=== PATIENT | female | born 1990 | race Caucasian/White ===

== ENCOUNTER 2023-04-16 12:46 | Outpatient (CLI) | payer BC, SELFPAY ==
--- NOTE | 2023-04-16 13:00 | CRLHL7_ITS ---
For Patients: As a result of the Century Cures Act, medical imaging exams and procedure reports are released immediately into your electronic medical record. You may view this report before your referring provider. If you have questions, please contact your health care provider. INDICATION: First trimester scan, establish dates. COMPARISON: None. TECHNIQUE: Real-time plummer-scale imaging of the pelvis was performed. FINDINGS: Cervix is closed. The ovaries are both normal. No ectopic or excess pelvic free fluid. Intrauterine gestational sac is present with a mean sac diameter of 11.1 millimeters, 5 weeks 5 days. No pole. No yolk sac. IMPRESSION: Intrauterine gestational sac measuring 5 weeks 5 days without pole. Follow-up in 11-14 days suggested. Dictated by Jim Pineda MD @ 04/16/2023 1:46:30 PM (Electronically Signed)
== END 2023-04-16 12:47 | disposition home or self-care (01) ==
LOC: US 12:47
PROVIDERS: PCP Family Medicine; Visit Provider Registered Nurse
DX: Z34.91 Encounter for supervision of normal pregnancy, unspecified, first trimester (principal)
CPT/HCPCS: 76817; 84702; 86850; 86900; 86901

== ENCOUNTER 2023-04-18 13:45 | Outpatient (CLI) | payer BC, SELFPAY | END 2023-04-18 13:46 | disposition home or self-care (01) | LOC: NFLDREF 04-19 08:23 | PROVIDERS: PCP Family Medicine; Referring Provider Family Medicine; Visit Provider Registered Nurse | DX: O26.859 Spotting complicating pregnancy, unspecified trimester (principal) | CPT/HCPCS: 84702 ==

== ENCOUNTER 2023-04-25 11:29 | Outpatient (CLI) | payer BC, SELFPAY | END 2023-04-25 11:30 | disposition home or self-care (01) | LOC: NFLDREF 05-01 09:45 | PROVIDERS: PCP Family Medicine; Referring Provider Family Medicine; Visit Provider Registered Nurse | DX: O03.9 Complete or unspecified spontaneous abortion without complication (principal) | CPT/HCPCS: 84702 ==

== ENCOUNTER 2023-05-02 11:30 | Outpatient (CLI) | payer BC, SELFPAY | END 2023-05-02 11:31 | disposition home or self-care (01) | LOC: NFLDREF 05-04 12:44 | PROVIDERS: PCP Family Medicine; Referring Provider Family Medicine; Visit Provider Registered Nurse | DX: O03.9 Complete or unspecified spontaneous abortion without complication (principal) | CPT/HCPCS: 84702 ==

== ENCOUNTER 2023-05-09 11:43 | Outpatient (CLI) | payer BC, SELFPAY | END 2023-05-09 11:44 | disposition home or self-care (01) | LOC: NFLDREF 11:43 | PROVIDERS: PCP Family Medicine; Visit Provider Registered Nurse | DX: O03.9 Complete or unspecified spontaneous abortion without complication (principal) | CPT/HCPCS: 84702 ==

== ENCOUNTER 2023-06-26 12:23 | Day surgery (SDC) | payer BC, SELFPAY ==
[2023-06-26] VITALS (16 sets, daily range): BP systolic 102–125; BP diastolic 59–78; PULSE 68–130; RESP 12–22; TEMP 36.4–37.4; O2SAT 97–100; BMI 24.6
--- NOTE | 2023-06-26 12:46 | CRLHL7_ITS ---
For Patients: As a result of the Cures Act, medical imaging exams and procedure reports are released immediately into your electronic medical record. You may view this report before your referring provider. If you have questions, please contact your health care provider. INDICATION: with bleeding and right lower quadrant pain TECHNIQUE: Ultrasound pelvis transvaginal for better assessment or to better visualize the endometrium. Real-time sonographic images with spectral and color Doppler imaging of the ovaries were obtained. COMPARISON: None FINDINGS: Uterus is anteverted with endometrium measuring 14 millimeters. No intrauterine gestational sac seen. Maternal left ovary measures 1.9 x 3.0 x 1.8 centimeters with normal blood flow and a likely corpus luteum. Maternal right ovary measures 2.8 x 1.3 x 3.0 centimeters. Adjacent to the right ovary is a rounded hypoechoic structure with peripheral hyperechogenicity measuring 11 millimeters. Trace adjacent free fluid, likely complex fluid such as hematoma. IMPRESSION: No intrauterine gestation identified. Hypoechoic lesion adjacent to the right ovary measuring 11 millimeters. With the history of a positive test and right-sided pain appearance is suspicious for a right adnexal ectopic . Correlation with quantitative beta HCG is suggested. Results given to the ER nurse by the industrial safety and health technician at the time of the study on 06/26/2023 Dictated by Albert Reza MD @ 06/26/2023 2:54:59 PM (Electronically Signed)
--- NOTE | 2023-06-26 12:49 | ED_ITS ---
HPI - Abdominal Pain General Chief Complaint: Abdominal Pain Stated Complaint: Suspected ectopic Time Seen by Provider: 06/26/23 12:25 History of Present Illness HPI narrative: This 33-year-old female comes in with right lower quadrant pain that began this morning. She states that the pain is now 9/10 in severity and is generally constant but does have some increased episodes of pain. The pain is worse with any kind of movement. She states that she is about 5 weeks and did have a miscarriage about 3 months ago. She is Rh negative. She does not report any significant vaginal bleeding but did have a little bit of blood when she wiped today she says. She rates the pain at 9/10 in severity currently. Related Data Home Medications Medication Instructions Recorded Confirmed No Known Home Medications 06/26/23 06/26/23 Allergies Allergy/AdvReac Type Severity Reaction Status Date / Time No Known Drug Allergies Allergy Verified 04/16/23 13:41 Review of Systems Status of ROS Reports: 10 or more systems reviewed and unremarkable except as noted in History and below Narrative Constitutional: No fevers, no weight gain or loss. Eyes: No discharge. No vision changes. HENT: No congestion, no sore throat, no ear pain. Cardiovascular: No chest pain, no palpitations. Respiratory: No shortness of breath, no wheezes, no cough. Gastrointestinal: No vomiting, no diarrhea. Right lower quadrant abdominal pain. Genitourinary: No dysuria, no hematuria. Musculoskeletal: Normal range of motion. Skin: No rashes, no pruritis. Neurological: No dizziness, weakness, sensory change, speech change. Endo/Heme/Allergies: No bruising or bleeding. No polydipsia. Pysch: no suicidality, no anxiety, no insomnia. All other systems reviewed and are negative. [facility] Medical History Vaginal delivery ?O80 - Encounter for full-term uncomplicated delivery (ICD-10) hemorrhage ?O72.1 - Other immediate hemorrhage (ICD-10) Surgical History [place] teeth extracted ?K08.409 - Partial loss of teeth, unspecified cause, unspecified class (ICD- 10) H/O nasal septoplasty ?Z98.890 - Other specified postprocedural states (ICD-10) Family History Mother Breast cancer COPD (chronic obstructive pulmonary disease) Skin cancer Paternal Grandmother Heart disease Stroke Maternal Grandmother Stroke Social History Smoking Status: Never smoker How often do you have a drink containing alcohol: never AUDIT-C Alcohol total score: 0 Non-prescribed substance use: denies use service: No Exam Narrative: Exam Narrative: Constitutional: Well-developed, well-nourished, no acute distress. HEENT: Normocephalic, atraumatic. Neck: Normal range of motion. Nontender. Supple. Heart: Regular. No murmurs. Normal rate. Intact distal pulses. Lungs: Clear to auscultation. No chest discomfort. No wheezes, rhonchi, or rales. Abdomen: Tenderness in the right lower quadrant. Rovsing sign is positive. Mild to moderate rebound tenderness. Genitalia: Deferred. Back: No midline tenderness. Normal range of motion. Extremities: Normal range of motion. No injury. Skin: Intact. No rash. Warm. No erythema or pallor. Neurologic: No altered sensation. No weakness. Alert and oriented. Psychiatric: No suicidality. No anxiety or depression. No insomnia. Nursing notes and vitals signs are reviewed. Const: Vital Signs, click to edit/add: Vital Signs - 24 hr 06/26/23 12:34 Temperature 97.5 F L Pulse Rate [Left P ulse Oximeter] 104 H Blood Pressure [Ri ght Upper Arm] 102/59 L Pulse Oximetry 100 Oxygen Delivery Me thod Room Air Course Vital Signs Vital signs: Initial Vital Signs Temperature 97.5 F L 06/26/23 12:34 Temperature Source Temporal Artery Scan 06/26/23 12:34 Pulse Rate 104 H 06/26/23 12:34 Pulse Rhythm Regular 06/26/23 12:34 Pulse Strength 3+ Normal 06/26/23 12:34 Blood Pressure 102/59 L 06/26/23 12:34 Blood Pressure Mean 73 06/26/23 12:34 Blood Pressure Position Sitting 06/26/23 12:34 Pulse Oximetry 100 06/26/23 12:34 Oxygen Delivery Method Room Air 06/26/23 12:34 Vital Signs Temperature 97.5 F L 06/26/23 12:34 Pulse Rate 104 H 06/26/23 12:34 Blood Pressure 102/59 L 06/26/23 12:34 Pulse Oximetry 100 06/26/23 12:34 Oxygen Delivery Method Room Air 06/26/23 12:34 Temperature 97.5 F L 06/26/23 12:34 Pulse Rate 104 H 06/26/23 12:34 Blood Pressure 102/59 L 06/26/23 12:34 Pulse Oximetry 100 06/26/23 12:34 Oxygen Delivery Method Room Air 06/26/23 12:34 MDM - Abdominal Pain MDM Narrative Medical decision making narrative: This patient comes in with right lower quadrant abdominal pain and some vaginal bleeding that is suspicious for ectopic . She states that she thinks she is 5 weeks . Her pain is rated at 9/10. She is Rh negative blood type. An IV was established where she received Dilaudid 0.5 mg and Zofran 4 mg. This brought sufficient relief of her pain. Ultrasound is obtained which does show findings highly suspicious for an ectopic . I did contact the OBGYN physician on-call, Dr. Treviño, who came to speak with the patient and arrange for emergent laparoscopy. A type and screen test is obtained. The patient did receive RhoGAM. Her beta-hCG returns at around 600 and her white count returns at 16.6. She is maintaining normal vital signs. Lab Data Labs: Lab Results 06/26/23 Range/Units 12:58 WBC 16.65 H (4.50-11.00) K/uL RBC 4.33 (4.00-5.20) m/uL Hgb 12.9 (12.0-16.0) gm/dL Hct 39.4 (33.0-51.0) % MCV 91 (80-100) fL MCH 30 (26-34) pg MCHC 33 (32-36) gm/dL RDW Coeff of [place]les 13.0 (11.5-15.5) % Plt Count 252 (140-440) K/uL Neut % (Auto) 82.5 H (42.0-72.0) % Lymph % (Auto) 10.9 L (20-44) % [place] % (Auto) 5.6 (0.0-11.0) % Eos % (Auto) 0.1 (0.0-7.0) % Baso % (Auto) 0.2 (0.0-3.0) % Neut # (Auto) 13.70 H (1.7-7.0) K/uL Lymph # (Auto) 1.80 (0.90-2.90) K/uL [place] # (Auto) 0.90 (0.00-0.90) K/UL Eos # (Auto) 0.00 (0.00-0.50) K/uL Baso # (Auto) 0.00 (0.00-0.30) K/uL Abs Immat Gran (auto) 0.10 (0.00-0.30) K/uL Imm/Tot Granulo (auto) 0.7 % Sodium 135 (135-149) mmol/L Potassium 3.9 (3.6-5.1) mmol/L Chloride 104 (96-114) mmol/L Carbon Dioxide 19 L (20-32) mmol/L Anion Gap 12 (7-15) mEq/L BUN 8 (5-24) mg/dL Creatinine 0.6 (0.5-1.5) mg/dL Estimated Creat Clear 105.48 Estimated GFR 121 ml/min Glucose 105 (60-115) mg/dL Calcium 8.7 (8.4-10.6) mg/dL HCG, Quant 601.06 mIU/mL Imaging Data US - abdomen: Radiologist's impression: No intrauterine gestation identified. Hypoechoic lesion adjacent to the right ovary measuring 11 millimeters. With the history of a positive test and right-sided pain appearance is suspicious for a right adnexal ectopic . Correlation with quantitative beta HCG is suggested. Discharge Plan Discharge Clinical Impression: Ectopic Patient Disposition: XFER to OR Condition: Unchanged Prescriptions: No Action No Known Home Medications Follow Up/Referrals: Jeff Bautista MD [Primary Care Provider] -
[2023-06-26] MEDS: HYDROmorphone 0.5 mg/0.5 ml inj IVP (13:00)
[2023-06-26] MEDS: ONDANSETRON 2 MG/ML inj 4 MG IVP (13:01)
[2023-06-26 13:15] LABS: Basophils Percent Auto 0.2 % (0.0-3.0); Eosinophils Percent Auto 0.1 % (0.0-7.0); Hematocrit 39.4 % (33.0-51.0); Hemoglobin* 12.9 gm/dL (12.0-16.0); Immature Granulocytes Pct Auto 0.7 %; Lymphocytes Percent Auto 10.9 % (20-44); Mean Corpuscular HGB Conc 33 gm/dL (32-36); Mean Corpuscular Hemoglobin 30 pg (26-34); Mean Corpuscular Volume 91 fL (80-100); Monocytes Percent Auto 5.6 % (0.0-11.0); Neutrophils Percent Auto 82.5 % (42.0-72.0); Platelet Count* 252 K/uL (140-440); Red Blood Count 4.33 m/uL (4.00-5.20); White Blood Count* 16.65 K/uL (4.50-11.00)
[2023-06-26 13:16] LABS: Chloride* 104 mmol/L (96-114); Sodium* 135 mmol/L (135-149)
[2023-06-26 13:17] LABS: Potassium* 3.9 mmol/L (3.6-5.1)
[2023-06-26 13:18] LABS: Slide Review Reflex No
[2023-06-26 13:19] LABS: Creatinine* 0.6 mg/dL (0.5-1.5); Est. Creatinine Clearance* 105.48; Estimated Glomerular Filt Rate 121 ml/min
[2023-06-26 13:20] LABS: Anion Gap 12 mEq/L (7-15); Blood Urea Nitrogen* 8 mg/dL (5-24); Calcium* 8.7 mg/dL (8.4-10.6); Carbon Dioxide* 19 mmol/L (20-32); Glucose* 105 mg/dL (60-115)
--- NOTE | 2023-06-26 14:42 | ED.NURSE ---
Report received from HUAN Mcgee.
--- NOTE | 2023-06-26 15:12 | P.GYNCN_ITS ---
TOY DESIGNER - CN: HPI Data of Consult Time Seen by Provider: 14:20 Date Seen: 06/26/23 Patient: [facility] Patient Primary Care Provider: Jeff Bautista MD Consult Narrative Reason for consult: ectopic Narrative: Caryl Singh is a 33yo at 5w2d GA by LMP of 05/20/23 seen for suspected ectopic . She called nurse triage early this afternoon, reporting severe right lower quadrant pain where she was recommended to present to the emergency department. There, she was found to be hemodynamically stable with mild tachycardia. Laboratory evaluation was notable for mild leukocytosis, normal hemoglobin and elevated beta hCG of 601. Transvaginal ultrasound was performed and is significant for no intrauterine , with right-sided hypoechoic lesion adjacent to the right ovary measuring 11 mm with surrounding complex fluid suspicious for small hemoperitoneum. Altogether, the findings were described as highly concerning for ectopic gestation. Gynecology consult was requested. Represented the bedside, where Caryl affirmed the above history. She notes onset of right lower quadrant pain this morning, that was initially crampy in nature. Through the day, she has had increasingly severe pain localized to the right lower quadrant with some radiation down her leg. Pain is exacerbated with movement. She has associated new onset nausea, no vomiting. Endorses mild lightheadedness, no dizziness, chest pain or dyspnea. She further notes new onset vaginal bleeding after the onset of pain, small volume of bright red blood. No bowel or bladder concerns. No fever/chills, though she has had sore throat for the last 2-3 days. Past medical history is unremarkable, she denies any chronic conditions or meds she takes daily. She has no prior abdominal surgeries. This is a planned and desired . Rh negative, she has yet to receive RhoGAM. cc:: CC: [facility] Medical History Vaginal delivery ?O80 - Encounter for full-term uncomplicated delivery (ICD-10) hemorrhage ?O72.1 - Other immediate hemorrhage (ICD-10) Surgical History [place] teeth extracted ?K08.409 - Partial loss of teeth, unspecified cause, unspecified class (ICD- 10) H/O nasal septoplasty ?Z98.890 - Other specified postprocedural states (ICD-10) Family History Mother Breast cancer COPD (chronic obstructive pulmonary disease) Skin cancer Paternal Grandmother Heart disease Stroke Maternal Grandmother Stroke Social History Smoking Status: Never smoker How often do you have a drink containing alcohol: never AUDIT-C Alcohol total score: 0 Non-prescribed substance use: denies use service: No Meds Home Medications and Allergies Home Medications Medication Instructions Recorded Confirmed Type No Known Home Medications 06/26/23 06/26/23 History Allergies Allergy/AdvReac Type Severity Reaction Status Date / Time No Known Drug Allergies Allergy Verified 04/16/23 13:41 TOY DESIGNER - Exam Physical Exam: Vital signs: Temp Pulse BP Pulse Ox O2 Del Method 97.5 F L 104 H 102/59 L 100 Room Air 06/26/23 12:34 06/26/23 12:34 06/26/23 12:34 06/26/23 12:34 06/26/23 12:34 Narrative: General: No acute distress Psych: Alert and oriented x 3, full affect HEENT: Normocephalic, atraumatic Abdomen: Soft, tenderness to palpation in the right lower quadrant. No rebound or guarding. Pelvic exam: Deferred. Pelvic US impression: No intrauterine gestation identified. Hypoechoic lesion adjacent to the right ovary measuring 11 millimeters. With the history of a positive test and right-sided pain appearance is suspicious for a right adnexal ectopic . Correlation with quantitative beta HCG is suggested. Results given to the ER nurse by the credit and loan collections supervisor at the time of the study on 06/26/2023 TOY DESIGNER - Results Labs Labs: Short CBC 06/26/23 Range/Units 12:58 WBC 16.65 H (4.50-11.00) K/uL Hgb 12.9 (12.0-16.0) gm/dL Hct 39.4 (33.0-51.0) % Plt Count 252 (140-440) K/uL BMP 06/26/23 12:58 Sodium 135 Potassium 3.9 Chloride 104 Carbon Dioxide 19 L BUN 8 Creatinine 0.6 Glucose 105 Calcium 8.7 Assessment and Plan Assessment and plan (1) Spotting in early : Status: Acute (2) Rh negative status during : Status: Acute (3) Ectopic : Status: Acute Plan Ms. Singh is a 33-year-old at 5 weeks 2 days gestational age by LMP seen for evaluation of suspected ectopic gestation. She notes acute onset of right lower quadrant pain with associated nausea and lightheadedness today. In the emergency department, she was found to be hemodynamically stable with mild tachycardia. Normal hemoglobin with mild leukocytosis seen. Transvaginal ultrasound was significant for no IUP, right adnexal mass with likely surrounding complex fluid/hemoperitoneum. hCG of 601. I recommend proceeding to diagnostic laparoscopy and proceed as indicated in the setting of presumed ectopic gestation. Given the severity of pain and question of rupture, I do not feel expectant management is appropriate. That said, we reviewed that a ruptured ectopic could be definitively diagnosed by surgery - and given the small size of the right adnexal process it is possible that my intraoperative findings are not consistent with ectopic. If ectopic with her without rupture was confirmed, plan to proceed to unilateral salpingectomy. We discussed reproductive implications of unilateral salpingectomy, where I would assess the appearance of the contralateral tube at time of surgery. Patient expressed understanding and agreeable to plan. If no hemoperitoneum was encountered and there was no evidence of an ectopic , we discussed the option of expectant management with serial HCGs or proceeding to a suction D&C in surgery today for diagnostic and potentially therapeutic purposes (if this is rather a intrauterine early loss). Given that this is a planned and desired , Caryl would desire expectant management with serial HCGs. If her hCG were to fail to rise appropriately, I discussed the role of methotrexate for medical management of of unknown location/suspected ectopic. She has no medical contraindications to this, would be agreeable if clinically indicated in the future. Altogether, consent was obtained for diagnostic laparoscopy and proceed as indicated with possible right salpingectomy. All questions answered. Plan to add type and screen to her ED labs. Recommend RhoGAM for Rh-negative status. Patient is hopeful to discharge home following same-day surgery today.
--- NOTE | 2023-06-26 15:17 | ED.NURSE ---
RHOGAM given as ordered by HUAN Mcgee. VSS. Pt tolerated well. Asking for water, Pt informed of NPO status, given mouth swab for dry mouth.
[2023-06-26] MEDS: BUPIVACAINE 0.5% 30 ML INJECTION (15:55)
[2023-06-26] MEDS: LACTATED RINGERS 1000 ML 1,000 ML 100 ML IV (16:39)
--- NOTE | 2023-06-26 17:02 | W.ANESCHARGE ---
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
--- NOTE | 2023-06-26 17:05 | W.PM.GYNPROC ---
Procedure Note Time Seen by Provider: 16:30 Date of procedure: 06/26/23 Pre-op diagnosis: Suspected right tubal ectopic Post-op diagnosis: other (Right tubal ectopic , small volume hemoperitoneum) Procedure: Laparoscopic right salpingectomy Anesthesia: GETA Complications: None. Surgeon: Tete Treviño MD Estimated blood loss (mL): 100 IV fluids (mL): 1,100 Urine Output (mL): 10 Pathology: specimen obtained, sent to pathology Condition: stable Disposition: same day Findings: Small volume hemoperitoneum Right tubal ectopic , clot extruding from the fimbriated end Normal uterus and left fallopian tube Unremarkable upper abdominal survey and appendix Procedure Description: The patient was brought to the operating room and after the induction of general anesthesia, placed in the supine position. Jack catheter inserted. A surgical pause was performed to ensure patient identity and planned procedure. After sterile prep and drape, a 10-mm periumbilical skin incision was made and carried through the fascia using an open laparoscopic technique. Fascia was tagged with 0 Vicryl upon entry. A 10-mm Rosibel trocar was placed and pneumoperitoneum created. Hemoperitoneum was not readily apparent. Upper abdominal survey was completed and found to be within normal limits. A secondary 5mm laparoscopic trocar was placed 2 cm medial lateral to left ASIS under direct visualization. Patient was placed into Trendelenburg and upon pelvic survey, small volume hemoperitoneum was identified with right tubal ectopic extruding from the fimbriated end. No active bleeding was noted, organized clot was seen at the tubal fimbriae with dark red blood primarily localized to the posterior cul-de-sac. A second left-sided 5 mm trocar was inserted lateral to the umbilicus under direct visualization. I first evacuated the pelvic hemoperitoneum to allow access to the adnexa. The right fallopian tube was elevated at the fimbriated end, where Ligasure was utilized to sequentially transect and ligate the mesosalpinx. The IP was noted to be well lateral to the intended course of transection. Care was taken to not disrupt any ovarian tissue nor disrupt the tubal ectopic . The mesosalpinx was sequentially ligated and transected to the uterine cornua, at which time the tube was transected and ligated. Excellent hemostasis was noted. The left fallopian tube was inspected and noted to be unremarkable. The right fallopian tube was retrieved from the pelvis using an Endobag. I proceeded to further evacuation of small volume hemoperitoneum. Right lower quadrant was inspected, where normal appendix is visualized. Irrigation and suction of the pelvis confirmed excellent hemostasis. All ports removed under direct visualization. The periumbilical fascia was closed with running 0 Vicryl. Fascial take sutures were tied together. All skin incisions were closed with subcuticular 4-0 Monocryl and surgical glue applied. Estimated blood loss was 100 mL, which consisted entirely of existing hemoperitoneum. Surgical debriefing was performed, where both myself and circulating RN confirmed the right fallopian tube was to be sent for pathologic evaluation. The patient tolerated the surgery well and was taken to recovery in stable condition.
[2023-06-26] MEDS: OXYCODONE 5 MG TABLET PO (18:36)
--- NOTE | 2023-06-26 20:27 | PC.NURSE ---
Pt arrived from PACU to Med Surg at approximately 17:30. Pt alert and oriented to self, time, situation. Family at bedside. Pt reported pain managed with interventions in MAR and ice. Lap sites glued, open to air, no drainage present. Tolerating toast, spenser crackers, and juice with no reported nausea. Up to bathroom with standby assist, voided x1. Discharged at 19:30, with all personal belongings accompanied by spouse.
== END 2023-06-26 19:30 | disposition home or self-care (01) ==
LOC: ED 15:16 → SS 15:16 → MEDSURG 17:49
PROVIDERS: Emergency Provider Emergency Medicine Emergency Medical Services; PCP Family Medicine; Visit Provider Obstetrics & Gynecology
PROC: (CPT 59150; principal; 2023-06-26 15:00)
DX: O00.101 Right tubal pregnancy without intrauterine pregnancy (principal); R10.31 Right lower quadrant pain; K66.1 Hemoperitoneum; R42 Dizziness and giddiness; O26.891 Other specified pregnancy related conditions, first trimester; Z67.91 Unspecified blood type, Rh negative; Z3A.01 Less than 8 weeks gestation of pregnancy
CPT/HCPCS: 59151; 36415; 36430; 76817; 80048; 84702; 85025; 851; 86850; 86870; 86880; 86900; 86901; 88305; 93976; 99140; 99285; A9270; J0330; J0665; J1100; J1170; J1885; J2250; J2405; J2704; J2791; J3010; J3490; J7120

== ENCOUNTER 2023-11-12 07:08 | Outpatient (CLI) | payer BC, SELFPAY ==
--- NOTE | 2023-11-12 07:15 | US_ITS ---
Final Report Patient: SIGRID LEDEZMA Facility:?[facility] Patient ID:?[id number] Site Patient ID:?[id number]. Site :?[id number] Study:?US OB Pelvis TV dating/viability-11/12/2023 8:08:20 AM Ordering Physician:MIQUEL Final Report: INDICATION: First trimester scan, establish dates. COMPARISON: None. TECHNIQUE: Real-time plummer-scale imaging of the pelvis was performed. FINDINGS: Sonographic imaging demonstrates a single living intrauterine gestation. The embryo demonstrates a regular cardiac rate measuring 185 beats per minute. The embryo`s crown-rump length measurement of 2.1 cm corresponds to a gestational age of 8 weeks 5 days with a sonographic due date of 06/18/2024. There is a normal-appearing yolk sac. There are no gross abnormalities noted within the embryo at this early state of development. The gestational sac has a normal appearance. There is a 2.0 x 0.8 x 1.6 cm inferior perigestational hemorrhage. The amount of fluid within the sac appears appropriate for gestational age. The cervix is closed. The myometrium appears normal. The ovaries are of normal size. Corpus luteal cyst left ovary. There are no suspicious fluid collections noted in the cul-de-sac. IMPRESSION: Single living intrauterine with sonographic gestational age 8 weeks 5 days and sonographic due date of 06/18/2024. Inferior subchorionic hemorrhage measuring 2.0 x 0.8 x 1.6 cm Dictated by Jim Pineda MD @ 11/12/2023 12:35:26 PM (Electronic Signature)
== END 2023-11-12 07:09 | disposition home or self-care (01) ==
LOC: US 07:09
PROVIDERS: PCP Family Medicine; Visit Provider Obstetrics & Gynecology
DX: Z34.91 Encounter for supervision of normal pregnancy, unspecified, first trimester (principal); O20.9 Hemorrhage in early pregnancy, unspecified; Z3A.08 8 weeks gestation of pregnancy
CPT/HCPCS: 76817; 86703; 86706; 86803; 86850; 86900; 86901; 87086; 87340; 87491; 87591

== ENCOUNTER 2023-11-12 08:19 | Outpatient (CLI) | payer BC, SELFPAY ==
[2023-11-12 14:42] LABS: Chlamydia DNA Amplified* NOT DETECTED (No Detected); GC DNA Amplified* NOT DETECTED (No Detected)
== END 2023-11-12 08:20 | disposition home or self-care (01) ==
PROVIDERS: PCP Family Medicine; Visit Provider Obstetrics & Gynecology
DX: Z34.91 Encounter for supervision of normal pregnancy, unspecified, first trimester (principal); O20.9 Hemorrhage in early pregnancy, unspecified; Z3A.08 8 weeks gestation of pregnancy
CPT/HCPCS: 86592; 86703; 86704; 86706; 86762; 86787; 86803; 86850; 86900; 86901; 87086; 87340; 87491; 87591

== ENCOUNTER 2024-01-31 09:04 | Outpatient (CLI) | payer BC, SELFPAY ==
--- OUTSIDE RECORDS SUMMARY | 2024-01-31 09:06 | XMS_ITS | Clinical Summary ---
Author Organization [facility] Address [place], [place] [address] Care Team Providers Care Dermatology Nurse Practitioner Name Role Phone Hitesh Burnham Primary Care Provid er Allergies Active Allergy Reactions Criticality Noted Date Comments Loratadine 03/14/2011 Medications Medication Sig Dispensed Refills Start Date End Date Status cyanocobalamin (VITAMIN B12) 1,000 mcg/mL injectionIndication s:Numbness and tingling,B12 deficiency Inject 1 mL intramuscular every 4 weeks. 1 mL 11 12/20/2015 Active omeprazole (PRILOSEC) 20 mg Delayed-Release capsuleIndications: Gastroesophageal reflux disease without esophagitis Take 1 capsule by mouth once daily before a meal. 60 capsule 07/24/2016 Active vitamin e 1,000 unit cap Take 1 capsule by mouth once daily. 0 10/11/2016 Active ESTARYLLA 0.25-35 mg-mcg tabletIndications:E ncounter for gynecological examination TAKE ONE TABLET BY MOUTH ONE TIME DAILY 84 tablet 3 11/08/2016 Active fluticasone (50 mcg per actuation) nasal solution (FLONASE)Indication s:Seasonal allergic rhinitis, unspecified allergic rhinitis trigger Inhale 1 spray into both nostrils once daily. 16 g 12/26/2016 Active levocetirizine (XYZAL) 5 mg tab tabletIndications:S easonal allergic rhinitis, unspecified allergic rhinitis trigger Take 1 tablet by mouth once daily in the evening. 30 tablet 3 12/26/2016 Active azithromycin (ZITHROMAX Z-SYDNI) 250 mg tabletIndications:A cute non-recurrent maxillary sinusitis Take 500 mg (2 tablets) by mouth on day 1, then 250 mg (1 tablet) once daily for days 2-5. 6 tablet 12/26/2016 Active Hospital, Clinic, or Other Facility Administered Medication Ordered Dose Route Frequency Start Date End Date Status cyanocobalamin 1,000 mcg injection (VITAMIN B12)Indications:B12 deficiency 1000 mcg IM Q 4 WEEKS (28 DAYS) 10/29/2016 Active Active Problems Problem Noted Date Diagnosed Date B12 deficiency 12/20/2015 Goiter 07/27/2014 Anxiety 03/20/2013 GERD (gastroesophageal reflux disease) 3 Other and unspecified ovarian cyst 11/29/2012 Unspecified constipation 02/07/2012 Immunizations Name Administration Dates Next Due DTaP 01/01/1995, 3,1990,1990, Hepatitis B (Peds) 03/16/2002,10/15/2001, 002 Human Papilloma Virus Vaccine 02/17/2008, 008,07/30/2007 Inactivated Polio Vaccine 01/01/1995,10/27/1992, 1990,1990 Influenza, IIV4 08/20/2016 MMR 01/01/1995,1990 Td (Age >=7 Years) 04/07/2002 Tdap 06/09/2009 Tuberculin (PPD) 09/04/2016,08/20/2016 Family History Medical History Relation Name Comments Cancer Maternal Grandfather Other Mother br lump - no ca ncer gene/emphysema - from second hand smoke No Known Problems Paternal Aunt breast ca ncer Stroke Paternal Grandmother Relation Name Status Comments Father Alive Maternal Grandfather Mother Alive Paternal Aunt Paternal Grandmother Sister Alive Social History Tobacco Use Types Packs/Day Years Used Date Smoking Tobacco: Never Smokeless Tobacco: Never Alcohol Use Standard Drinks/Week Comments Yes 0 (1 standard drink = 0.6 oz pur e alcohol) Very Rare Sex and Gender Information Value Date Recorded Sex Assigned at Not on file Gender Identity Not on file Sexual Orientation Not on file Obstetrics History Para Term AB IAB SAB Ectopic Multiple Livin g Live Births 0 0 0 0 0 0 0 0 0 0 Last Filed Vital Signs Vital Sign Reading Time Taken Comments Blood Pressure 98/60 12/26/2016 10:05 AM CDT Pulse 72 12/26/2016 10:05 AM CDT Temperature 37.1 ??C (98.8 ??F) 12/26/2016 10:05 AM C DT Respiratory Rate 16 11/06/2016 12:07 PM ENT CONSULTANT Oxygen Saturation 99% 10/01/2016 1:46 PM ENT CONSULTANT Inhaled Oxygen Concentration - - Weight 57.3 kg (126 lb 6.4 oz) 12/26/2016 10:05 AM CDT Height 154.9 cm (5' 1) 12/26/2016 10:05 AM CDT Body Mass Index 23.88 12/26/2016 10:05 AM CDT Plan of Treatment Health Maintenance Due Date Last Done Comments HIV for age 15-65 2005 Hepatitis C screening for age 18-79 01/03/2008 BMI (ht and wt on same day) for age 18+ 12/26/2017 12/26/2016, 07/24/2016, 11/16/2015 Depression screening for age 12+ 12/26/2017 12/26/2016, 11/16/2015 Tetanus booster 07/09/2019 07/09/2009 (Comp leted outside of [facility]), 06/09/2009, 04/07/2002 COVID-19 vaccine series (2022-24 season) 2023 Pap test for age 21-65 03/17/2024 1, 03/17/2021, 09/30/2017, Additional history exists Influenza for age 9-49 05/10/2024 6, 06/23/2015 (Completed outside of [facility]) Tdap Completed 06/09/2009 Pneumococcal series for age 6-64 Aged Out No longer eligible based on patient's age to complete this topic Procedures Procedure Name Priority Date/Time Associated Diagnosis Comments FIRESETTER THIN PREP PAP SCREEN IMAGED Routine 03/17/2021 12:00 PM CDT from Last 3 Months or Most Recently Relevant to Health Maintenance Results * FIRESETTER THIN PREP PAP SCREEN IMAGED (03/17/2021 12:00 PM CDT) Case Report Gynecologic Cytology Report ? Case: [id number] ? Authorizing Provider: ??Jessica Guthrie PA-C ?Collected: ? 03/17/2021 1200 ? Ordering Location: ? [facility] ?Received: ?03/20/2021 1004 ? First Screen: ?Lynda Blackman ? Specimen: ?FIRESETTER ThinPrep Vial Screening, Cervical/Vaginal ? 03/29/2021 9:20 AM CDT [facility]- ENTRAL LABORATORY INTERPRETATION/ RESULT NEGATIVE FOR INTRAEPITHELIAL LESION OR MALIGNANCY (NIL) (none) 03/29/2021 9:20 AM T [facility] ENTRAL LABORATORY IMEN ADEQUACY Satisfactory for evaluation Endocervical component present 03/29/2021 9:20 AM CDT [facility] LABORATORY ENTRAL LABORATORY HPV REQUEST HPV and PAP 03/29/2021 9:20 AM CDT [facility]-C ENTRAL LABORATORY Last Pap Date 09/30/2017 03/29/2021 9:20 AM CDT [facility]-C ENTRAL LABORATORY Last Pap Result NIL 9:20 AM CDT [facility] LABORAT[facility]-C ENTRAL LABORATORY Menstrual Status 03/29/2021 9:20 AM CDT [facility] ENTRAL LABORATORY Additional Information 03/29/2021 9:20 AM CDT [facility] ENTRAL LABORATORY Comment: Interpreted at [facility], Central Laboratory - [address], [place] [address] Automated Review Successful 03/29/2021 9:20 AM T [facility] ENTRAL LABORATORY Comment:Specimen processed s uccessfully by automated finisher merchant products device, Jun GroupPrep Imaging System, [employer] ANCILLARY TESTING FIRESETTER HPV Ordered, Please see separate report 03/29/2021 9:20 AM T [facility] ENTRAL LABORATORY Note The pap test is a screening technique, not a diagnostic procedure. It is used primarily to screen for squamous cancers and precursor lesions. Published studies have shown that it is subject to both false negative and false positive results. The pap test should not be used as the sole means to diagnose or exclude pre-malignant and malignant lesions. 03/29/2021 9:20 AM T [facility] ENTRMO LABORATORY Other (Cervical/Vagina l) 03/17/2021 12:00 PM CDT 03/20/2021 10:04 AM CDT [place] [facility] LABORATORY [address] [place] [address], [place] from Last 3 Months or Most Recently Relevant to Health Maintenance Care Teams Dermatology Nurse Practitioner Relationship Specialty Start Date End Date Hitesh Burnham MBBS [address] [facility] [address] [place] [address] PCP - General Family Practice 08/22/15
--- NOTE | 2024-01-31 09:15 | CRLHL7_ITS ---
For Patients: As a result of the Century Cures Act, medical imaging exams and procedure reports are released immediately into your electronic medical record. You may view this report before your referring provider. If you have questions, please contact your health care provider. INDICATION: Evaluate anatomy. COMPARISON: 11.12.23 TECHNIQUE: Real time plummer scale imaging of the fetus was performed as well as color Doppler analysis of the umbilical vessels. FINDINGS: Sonographic imaging demonstrates a single living intrauterine gestation. Fetus demonstrates a regular cardiac rate of 150 beats per minute. Fetus has a vertex position. The placenta lies anteriorly without evidence of placenta previa. Edge of the placenta is located 9.6 cm from the internal cervical os. Amniotic fluid volume appears normal. Single deepest vertical pocket: 3.1 cm. The cervix is closed and measures 3.5 cm in length. The composite ultrasound gestational age is calculated at 19 weeks 5 days with an estimated sonographic due date of 06/21/2024. The estimated weight is 304 grams which lies at the 26th %. The following biometric measurements were obtained: Biparietal diameter: 4.6 cm/19 weeks 6 days 42nd% Head circumference: 17.0 cm/19 weeks 4 day 24th% Abdominal circumference: 14.2 cm/19 weeks 4 day 29th% Femur length: 3.1 cm/19 weeks 5 day 33rd% The HC/AC ratio measures: 1.20 range (1.08-1.26) On anatomic survey, there is a normal appearance of the cerebral ventricles, cavum septi pellucidi, cisterna magna and cerebellum. The nose, lips, and facial profile appear normal. The cervical, thoracic and lumbar spine are well visualized and appear normal. There is a normal four-chamber heart view and the left and right ventricular outflow tracts appear normal. The diaphragm and stomach appear normal. The kidneys and bladder also appear normal. There is a normal three-vessel cord and cord insertion site. The four extremities appear normal. IMPRESSION: Normal OB ultrasound exam with concordance of clinical and sonographic dating. No intrinsic abnormalities noted on anatomic survey. Dictated by Jim Pineda MD @ 01/31/2024 10:12:30 AM (Electronically Signed)
== END 2024-01-31 09:05 | disposition home or self-care (01) ==
LOC: US 09:04
PROVIDERS: PCP Family Medicine; Visit Provider Obstetrics & Gynecology
DX: Z34.92 Encounter for supervision of normal pregnancy, unspecified, second trimester (principal); Z3A.19 19 weeks gestation of pregnancy
CPT/HCPCS: 76805

== ENCOUNTER 2024-03-27 08:35 | Outpatient (CLI) | payer BC, SELFPAY ==
--- OUTSIDE RECORDS SUMMARY | 2024-03-30 14:40 | XMS_ITS | Clinical Summary ---
Author Organization [facility] Address [place], [place] [address] Care Team Providers Care Box Gluer Name Role Phone Hitesh Burnham Primary Care [...] DT Respiratory Rate 16 11/06/2016 12:07 PM WATER REGULATOR AND VALVE REPAIRER Oxygen Saturation 99% 10/01/2016 1:46 PM WATER REGULATOR AND VALVE REPAIRER Inhaled Oxygen Concentration - - Weight 57.3 [...] booster 07/09/2019 07/09/2009 (Comp leted outside of [facility]), 06/09/2009, 04/07/2002 COVID-19 vaccine series (2022-24 season) 2023 Pap test for age 21-65 03/17/2024 1, 03/17/2021, 09/30/2017, Additional history exists Influenza for age 9-49 05/10/2024 6, 06/23/2015 (Completed outside of [facility]) Tdap Completed 06/09/2009 Pneumococcal series for age 6-64 Aged Out No longer eligible based on patient's age to complete this topic Procedures Procedure Name Priority Date/Time Associated Diagnosis Comments CABLE TELEVISION PROGRAM DIRECTOR THIN PREP PAP SCREEN IMAGED Routine 03/17/2021 12:00 PM CDT from Last 3 Months or Most Recently Relevant to Health Maintenance Results * CABLE TELEVISION PROGRAM DIRECTOR THIN PREP PAP SCREEN IMAGED (03/17/2021 12:00 PM CDT) Case Report Gynecologic Cytology Report ? Case: [id number] ? Authorizing Provider: ??Jessica Guthrie PA-C ?Collected: ? 03/17/2021 1200 ? Ordering Location: ? [facility] ?Received: ?03/20/2021 1004 ? First Screen: ?Lynda Blackman ? Specimen: ?CABLE TELEVISION PROGRAM DIRECTOR ThinPrep Vial Screening, Cervical/Vaginal ? 03/29/2021 9:20 AM CDT [facility] [employer] LABORATORY- ENTRAL LABORATORY INTERPRETATION/ RESULT NEGATIVE FOR INTRAEPITHELIAL LESION OR MALIGNANCY (NIL) (none) 03/29/2021 9:20 AM T [facility] ENTRAL LABORATORY IMEN ADEQUACY Satisfactory for evaluation Endocervical component present 03/29/2021 9:20 AM CDT [facility] LABORATORY ENTRAL LABORATORY HPV REQUEST HPV and PAP 03/29/2021 9:20 AM CDT [facility] LABORATORY-C ENTRAL LABORATORY Last Pap Date 09/30/2017 03/29/2021 9:20 AM CDT [facility] LABORATORY-C ENTRAL LABORATORY Last Pap Result NIL 9:20 AM CDT [facility] LABORATORY-C ENTRAL LABORATORY Menstrual Status 03/29/2021 9:20 AM CDT [facility] ENTRAL LABORATORY Additional Information 03/29/2021 9:20 AM CDT [facility]-C ENTRAL LABORATORY Comment: Interpreted at [facility] [email or web address] [facility], Central Laboratory - [address], [place] [address] Automated Review Successful 03/29/2021 9:20 AM T [facility]-C ENTRAL LABORATORY Comment:Specimen processed s uccessfully by automated sales promotion director device, PSI SystemsPrep Imaging System, [email or web address] ANCILLARY TESTING CABLE TELEVISION PROGRAM DIRECTOR HPV Ordered, Please see separate report 03/29/2021 9:20 AM T [facility] ENTRAL LABORATORY Note The pap test is [...] and malignant lesions. 03/29/2021 9:20 AM T [facility] ENTRCA LABORATORY Other (Cervical/Vagina l) 03/17/2021 12:00 PM CDT 03/20/2021 10:04 AM CDT [place] [facility] LABORATORY [address] [place] [address], [place] from Last 3 Months or Most Recently Relevant to Health Maintenance Care Teams Box Gluer Relationship Specialty Start Date End Date Hitesh Burnham MBBS [address] [facility] [address] [place] [address] PCP - General Family Practice 08/22/15
== END 2024-03-27 08:36 | disposition home or self-care (01) ==
LOC: NFLDREF 03-30 14:39
PROVIDERS: PCP Family Medicine; Referring Provider Family Medicine; Visit Provider Obstetrics & Gynecology
DX: O26.893 Other specified pregnancy related conditions, third trimester (principal); Z67.91 Unspecified blood type, Rh negative; Z3A.28 28 weeks gestation of pregnancy
CPT/HCPCS: 85461; 86592; 86850

== ENCOUNTER 2024-04-10 10:28 | Outpatient (RCR) | payer BC, SELFPAY ==
--- NOTE | 2024-04-02 10:41 | URNOTE ---
Addendum entered by Daisha Almazan RN 04/02/24 10:45: This is for [facility] ([id number]) Original Note: Prior auth is not required per [employer]. Ref #[id number]
--- NOTE | 2024-04-03 08:44 | PC.NURSE ---
[facility] contacted by [facility] on 04/02 stating that Caryl called them (after getting scheduled for Venofer) asking for a one time dose Iron option instead. ok'd and orders faxed to [facility] New PA started, pt's appt for Saturday, 04/03 cancelled as PA not done nor does pharmacy have the dose available. Pt contacted, she verbalized understanding.
--- NOTE | 2024-04-03 13:36 | URNOTE ---
Prior authorization is not required for Iron Dextran (Infed) [id number] Ref #[id number]
[2024-04-10 10:40] VITALS: BP 105/71; PULSE 88; RESP 16; TEMP 36.8; O2SAT 100
[2024-04-10] MEDS: IRON DEXTRAN COMPLEX 25 MG in 0.9 % SODIUM CHLORIDE 100 ml 100 ML 402 MG IVPB (11:30)
[2024-04-10] MEDS: IRON DEXTRAN COMPLEX 975 MG in 0.9 % SODIUM CHLORIDE 250 ml 250 ML 269.5 MG IVPB (12:56)
[2024-04-10 14:19] VITALS: BP 100/61; PULSE 98; RESP 16; TEMP 37.2; O2SAT 100
== END 2024-10-07 23:59 | disposition home or self-care (01) ==
LOC: CCIC 10:28
PROVIDERS: PCP Family Medicine; Visit Provider Clinical Nurse Specialist
DX: D50.9 Iron deficiency anemia, unspecified (principal)
CPT/HCPCS: 96365; 96376; J1750; J7050

== ENCOUNTER 2024-04-28 11:09 | Outpatient (CLI) | payer BC, SELFPAY ==
--- OUTSIDE RECORDS SUMMARY | 2024-04-28 11:13 | XMS_ITS | Clinical Summary ---
Author Organization [facility] Address [place], [place] [address] Care Team Providers Care Engineering Designer Name Role Phone Hitesh Burnham Primary Care [...] 1000 mcg IM Q 4 WEEKS (28 days) 10/29/2016 Active Active Problems Problem Noted Date [...] DT Respiratory Rate 16 11/06/2016 12:07 PM HEAD SILVERMAN Oxygen Saturation 99% 10/01/2016 1:46 PM HEAD SILVERMAN Inhaled Oxygen Concentration - - Weight 57.3 [...] booster 07/09/2019 07/09/2009 (Comp leted outside of [facility]), 06/09/2009, 04/07/2002 COVID-19 vaccine series (2022-24 season) 2023 Pap test for age 21-65 03/17/2024 1, 03/17/2021, 09/30/2017, Additional history exists Influenza for age 9-49 05/10/2024 6, 06/23/2015 (Completed outside of [facility]) Tdap Completed 06/09/2009 Pneumococcal series for age 6-64 Aged Out No longer eligible based on patient's age to complete this topic Procedures Procedure Name Priority Date/Time Associated Diagnosis Comments MANAGER SOFTWARE THIN PREP PAP SCREEN IMAGED Routine 03/17/2021 12:00 PM CDT from Last 3 Months or Most Recently Relevant to Health Maintenance Results * MANAGER SOFTWARE THIN PREP PAP SCREEN IMAGED (03/17/2021 12:00 PM CDT) Case Report Gynecologic Cytology Report ? Case: [id number] ? Authorizing Provider: ??Jessica Guthrie PA-C ?Collected: ? 03/17/2021 1200 ? Ordering Location: ? [facility] C[facility]TRAL LAB ?Received: ?03/20/2021 1004 ? First Screen: ?Lynda Blackman ? Specimen: ?MANAGER SOFTWARE ThinPrep Vial Screening, Cervical/Vaginal ? 03/29/2021 9:20 AM CDT [facility] [employer] LABORATORY- ENTRAL LABORATORY INTERPRETATION/ RESULT NEGATIVE FOR INTRAEPITHELIAL LESION OR MALIGNANCY (NIL) (none) 03/29/2021 9:20 AM T [facility] ENTRAL LABORATORY IMEN ADEQUACY Satisfactory for evaluation Endocervical component present 03/29/2021 9:20 AM CDT [facility] LABORATORY ENTRAL LABORATORY HPV REQUEST HPV and PAP 03/29/2021 9:20 AM CDT [facility] LABORATORY-C ENTRAL LABORATORY Last Pap Date 09/30/2017 03/29/2021 9:20 AM CDT [facility] LABORATORY-C ENTRAL LABORATORY Last Pap Result NIL 9:20 AM CDT [facility] LABORATORY-C ENTRAL LABORATORY Menstrual Status 03/29/2021 9:20 AM CDT [facility] ENTRAL LABORATORY Additional Information 03/29/2021 9:20 AM CDT [facility] ENTRAL LABORATORY Comment: Interpreted at [facility] [employer] [facility], Central Laboratory - [address], [place] [address] Automated Review Successful 03/29/2021 9:20 AM T [facility] ENTRAL LABORATORY Comment:Specimen processed s uccessfully by automated supervisor waterworks device, AskN[employer]Prep Imaging System, [employer] ANCILLARY TESTING MANAGER SOFTWARE HPV Ordered, Please see separate report 03/29/2021 9:20 AM T [facility] ENTRAL LABORATORY Note The pap test [...] and malignant lesions. 03/29/2021 9:20 AM T [facility] ENTRCT LABORATORY Other (Cervical/Vagina l) 03/17/2021 12:00 PM CDT 03/20/2021 10:04 AM CDT [place] [facility] LABORATORY [address] [place] [address], [place] from Last 3 Months or Most Recently Relevant to Health Maintenance Care Teams Engineering Designer Relationship Specialty Start Date End Date Hitesh uBrnham MBBS [address] [facility] [address] [place] [address] PCP - General Family Practice 08/22/15
[2024-04-28 11:19] VITALS: PULSE 38; O2SAT 82
[2024-04-28 11:20] VITALS: BP 111/61; PULSE 88; PULSE 89; O2SAT 100
--- NOTE | 2024-04-28 11:45 | PM.OBLDTN ---
OB - Triage/Final Diagnosis Visit Information Narrative: The patient is a 34 year old 4 para 1021 at 32 4/7 weeks gestation by LMP, who presents with right low abdominal/groin pain. The discomfort has been constant since she first got up this morning. It is worsened by standing with pressure on her right leg or with trying to lift her leg. She had some discomfort in a similar location but not as severe that she discussed with dr. Treviño last Saturday during her visit, but that was associated more with trying to turn over in bed at night and did not last. She denies contractions, decreased movement, urinary urgency, frequency or dysuria, constipation, unusual vaginal discharge, vaginal bleeding or leakage of fluid. She has had no fever, chills, or malaise. Evaluation Vital signs: Vital Signs - 24 hr 04/28/24 11:19 04/28/24 11:20 Pulse Rate 88 Blood Pressure 111/61 Pulse Oximetry 82 L 100 Comments: Abdomen gravid, nontender, fundal height consistent with dates, vertex presentation by Chilo's. Tenderness over the symphysis pubis and right groin, no palpable masses. Fetus (Single) Heart Rate Baseline: 140 Long-Term Variability: Moderate (6-25) Monitor Accelerations: Present Monitor Decelerations: None Final Diagnosis (1) Pain in symphysis pubis during : Status: Acute Problem details: Refer to physical therapy.
[2024-04-28] MEDS: ACETAMINOPHEN 500 MG TABLET 1000 MG PO (11:48)
[2024-04-28 12:23] LABS: Appearance Urine Cloudy (Clear); Bilirubin Urine Negative (Negative); Blood Urine Negative (Negative); Color Urine Yellow (Yellow); Glucose Urine Negative (Negative); Ketones Urine 1+ (Negative); Leukocyte Esterase Urine 2+ (Negative); Nitrite Urine Negative (Negative); Protein Urine Negative (Negative); Urobilinogen Urine 0.2 (0.2-1.0); pH Urine 7.5 (5.0-8.5)
[2024-04-28 12:35] LABS: Bacteria Urine Few; RBC Urine 0-2 (0-2); Squamous Epithelial Cell Urine Few (None-Few)
--- NOTE | 2024-04-28 14:50 | PC.OBNST ---
NST Note NST Note Start: 04/28/24 11:14 Freq: ONCE Status: Active Protocol: Document 04/28/24 14:46 [facility] (Rec: 04/28/24 14:48 [facility] [id number]) NST Note 4 Para (# of births) 1 EDC 06/19/24 Gestational Age In Weeks & Days 32 Weeks & 4 Days Patient Presented with Complaint(s) of Pain If Pain, describe location R lower pelvic pain Reactive Yes Appropriate for Gestational Age Yes RN Prince RN Date 04/28/24 Reactive Yes Appropriate for Gestational Age Yes RN JSchuhulises Date 04/28/24 OB NST charge Yes Complete NST Note via Write Note Yes The provider's electronic signature indicates the NST is reactive/appropriate for gestational age. *Note to provider: If an addendum is required, open the patient's chart and click on the note under the Nurse/Allied Health tab.
== END 2024-04-28 13:54 | disposition home or self-care (01) ==
LOC: OB OUT 11:09 → OB 11:09
PROVIDERS: PCP Family Medicine; Visit Provider Obstetrics & Gynecology
DX: O99.891 Other specified diseases and conditions complicating pregnancy (principal); R10.31 Right lower quadrant pain; M79.18 Myalgia, other site; Z3A.32 32 weeks gestation of pregnancy
CPT/HCPCS: 59025; 81001; 81003; 87086; G0463; A9270

== ENCOUNTER 2024-05-22 08:49 | Outpatient (CLI) | payer BC, SELFPAY ==
[2024-05-23 11:34] LABS: Strep B DNA Probe Negative (Negative)
[2024-05-23 12:04] LABS: Strep B Susceptibility Needed? No
== END 2024-05-22 08:50 | disposition home or self-care (01) ==
LOC: NFLDREF 08:50
PROVIDERS: PCP Family Medicine; Visit Provider Obstetrics & Gynecology
DX: Z34.83 Encounter for supervision of other normal pregnancy, third trimester (principal)
CPT/HCPCS: 87081; 87653

== ENCOUNTER 2024-05-25 08:30 | Outpatient (RCR) | payer BC, SELFPAY | END 2024-09-22 23:59 | disposition home or self-care (01) | PROVIDERS: PCP Family Medicine; Visit Provider Obstetrics & Gynecology | DX: O99.891 Other specified diseases and conditions complicating pregnancy (principal); M79.18 Myalgia, other site; Z51.89 Encounter for other specified aftercare | CPT/HCPCS: 97140; 97161; 97535 ==

== ENCOUNTER 2024-06-18 13:30 | Inpatient (IN) | payer BC, SELFPAY ==
[2024-06-18] VITALS (58 sets, daily range): BP systolic 93–165; BP diastolic 51–122; PULSE 76–144; RESP 16–18; TEMP 36.7–37.3; O2SAT 92–100; BMI 31.8
--- OUTSIDE RECORDS SUMMARY | 2024-06-18 13:07 | XMS_ITS | Clinical Summary ---
Author Organization [facility] [facility] Address [place], [place] [address] Care Team Providers Care Hall Manager Name Role Phone Hitesh Burnham MD Primary Care Provider Allergies Active Allergy Reactions Criticality Noted Date [...] DT Respiratory Rate 16 11/06/2016 12:07 PM SERVICE OFFICER Oxygen Saturation 99% 10/01/2016 1:46 PM SERVICE OFFICER Inhaled Oxygen Concentration - - Weight 57.3 [...] booster 07/09/2019 07/09/2009 (Comp leted outside of [facility]), 06/09/2009, 04/07/2002 Pap test for age 21-65 03/17/2024 , 03/17/2021, 09/30/2017, Additional history exists COVID-19 vaccine series (2023- season) 2024 Influenza for age 9-49 05/10/2024 6, 06/23/2015 (Completed outside of [facility]) Tdap Completed 06/09/2009 Pneumococcal series for age 6-64 Aged Out No longer eligible based on patient's age to complete this topic Procedures Procedure Name Priority Date/Time Associated Diagnosis Comments BORING MILL SET UP OPERATOR THIN PREP PAP SCREEN IMAGED Routine 03/17/2021 12:00 PM CDT from Last 3 Months or Most Recently Relevant to Health Maintenance Results * BORING MILL SET UP OPERATOR THIN PREP PAP SCREEN IMAGED (03/17/2021 12:00 PM CDT) Case Report Gynecologic Cytology Report ? Case: [id number] ? Authorizing Provider: ??Jessica Guthrie PA-C ?Collected: ? 03/17/2021 1200 ? Ordering Location: ? [facility] CENTRAL LAB ?Received: ?03/20/2021 1004 ? First Screen: ?Lynda Blackman ? Specimen: ?BORING MILL SET UP OPERATOR ThinPrep Vial Screening, Cervical/Vaginal ? 03/29/2021 9:20 AM CDT [facility] [employer] LABORATORY- ENTRAL LABORATORY INTERPRETATION/ RESULT NEGATIVE FOR INTRAEPITHELIAL LESION OR MALIGNANCY (NIL) (none) 03/29/2021 9:20 AM T [facility] ENTRAL LABORATORY IMEN ADEQUACY Satisfactory for evaluation Endocervical component present 03/29/2021 9:20 AM CDT [facility] [employer] LABORATORY-C ENTRAL LABORATORY HPV REQUEST HPV and PAP 03/29/2021 9:20 AM CDT [facility] [employer] LABORATORY-C ENTRAL LABORATORY Last Pap Date 09/30/2017 03/29/2021 9:20 AM CDT [facility] LABORATORY-C ENTRAL LABORATORY Last Pap Result NIL 9:20 AM CDT [facility] [employer] LABORATORY-C ENTRAL LABORATORY Menstrual Status 03/29/2021 9:20 AM CDT [facility] ENTRAL LABORATORY Additional Information 03/29/2021 9:20 AM T [facility] [employer] LABORATORY-C ENTRAL LABORATORY Comment: Interpreted at [facility] [employer], Central Laboratory - [address], [place] [address] Automated Review Successful 03/29/2021 9:20 [facility] Comment:Specimen processed s uccessfully by automated jack tamp operator device, NeolinearPrep Imaging System, [employer] ANCILLARY TESTING BORING MILL SET UP OPERATOR HPV Ordered, Please see separate report 03/29/2021 9:20 AM T [facility] ENTRAL LABORATORY Note The pap test is [...] and malignant lesions. 03/29/2021 9:20 AM T [facility] ENTRPA LABORATORY Other (Cervical/Vagina l) 03/17/2021 12:00 PM CDT 03/20/2021 10:04 AM CDT [place] [facility] [address] [place] [address], [place] from Last 3 Months or Most Recently Relevant to Health Maintenance Care Teams Hall Manager Relationship Specialty Start Date End Date Hitesh Burnham MD [address] [facility] [address] [place] [address] PCP - General Family Practice 08/22/15
[2024-06-18] MEDS: LACTATED RINGERS 1000 ML 1,000 ML 1200 ML IV (13:30)
[2024-06-18 13:47] LABS: Basophils Percent Auto 0.1 % (0.0-3.0); Eosinophils Percent Auto 0.2 % (0.0-7.0); Hematocrit 38.9 % (33.0-51.0); Hemoglobin* 12.5 gm/dL (12.0-16.0); Immature Granulocytes Pct Auto 0.8 %; Lymphocytes Percent Auto 13.8 % (20-44); Mean Corpuscular HGB Conc 32 gm/dL (32-36); Mean Corpuscular Hemoglobin 29 pg (26-34); Mean Corpuscular Volume 91 fL (80-100); Monocytes Percent Auto 6.2 % (0.0-11.0); Neutrophils Percent Auto 78.9 % (42.0-72.0); Platelet Count* 179 K/uL (140-440); RDW Coefficient of Variation % 17.6 % (11.5-15.5); Red Blood Count 4.26 m/uL (4.00-5.20); White Blood Count* 19.11 K/uL (4.50-11.00)
[2024-06-18 13:56] LABS: Slide Review Reflex No
[2024-06-18] MEDS: ROPIVACAINE 0.2% 100 ml 100 ML 12 MG EPIDURAL (14:24)
[2024-06-18] MEDS: LIDOCAINE 2% (PF) 5 ML VIAL EPIDURAL (14:24)
[2024-06-18] MEDS: fentaNYL 250 MCG/5 ML inj 100 MCG EPIDURAL (14:34)
--- NOTE | 2024-06-18 14:50 | PM.ANBPRC ---
[facility] Medical History (Updated 05/29/24 @ 10:01 by Nanda Newsome MD) Otitis media ?H66.90 - Otitis media, unspecified, unspecified ear (ICD-10) Anemia, B12 deficiency ?D51.9 - Vitamin B12 deficiency anemia, unspecified (ICD-10) Ectopic ?O00.90 - Unspecified ectopic without intrauterine (ICD-10) Miscarriage ?O03.9 - Complete or unspecified spontaneous without complication (ICD-10) with uncertain viability ?O36.80X0 - with inconclusive viability, not applicable or unspecified (ICD-10) Rh negative status during ?O26.899 - Other specified related conditions, unspecified trimester (ICD-10) ?Z67.91 - Unspecified blood type, rh negative (ICD-10) Spotting in early ?O26.859 - Spotting complicating , unspecified trimester (ICD-10) Neuropathy ?G62.9 - Polyneuropathy, unspecified (ICD-10) Vaginal delivery ?O80 - Encounter for full-term uncomplicated delivery (ICD-10) hemorrhage ?O72.1 - Other immediate hemorrhage (ICD-10) Surgical History H/O unilateral salpingectomy ?Z90.79 - Acquired absence of other genital organ(s) (ICD-10) [place] teeth extracted ?K08.409 - Partial loss of teeth, unspecified cause, unspecified class (ICD-10) H/O nasal septoplasty ?Z98.890 - Other specified postprocedural states (ICD-10) Family History Mother Breast cancer COPD (chronic obstructive pulmonary disease) Skin cancer Paternal Grandmother Heart disease Stroke Maternal Grandmother Coronary artery disease Sister H/O hysterectomy for benign disease Social History What is your current living situation?: I presently have a place to live Problems where you live: no known problems In the past 12 months, utilities in danger of being shut off: no In past 12 months, lack of transportation kept you from medical appts, meetings, work, or getting things needed for daily living: no In the past 12 mos, have been you worried that your food would run out before you had money to buy more?: never true In the past 12 mos, the food you bought just didn't last and you didn't have money to buy more?: never true Smoking Status: Never smoker How often do you have a drink containing alcohol: never AUDIT-C Alcohol total score: 0 Non-prescribed substance use: denies use How often does anyone, including family, friends and others, physically hurt you: never How often does anyone, including family, friends and others, insult or talk down to you: never How often does anyone, including family, friends and others, threaten you with harm: never How often does anyone, including family, friends and others, scream or curse at you: never Little interest or pleasure in doing things: not at all Feeling down, depressed, or hopeless: not at all service: No Meds Home Medications and Allergies Home Medications ?Medication ?Instructions ?Recorded ?Confirmed ?Type acetaminophen 500 mg capsule 1,000 mg PO Q6H PRN 11/12/23 06/18/24 History docosahexaenoic acid 200 mg 200 mg PO DAILY 11/12/23 06/18/24 History capsule ( DHA) famotidine 20 mg tablet 20 mg PO QDAY 03/27/24 06/18/24 History Allergies Allergy/AdvReac Type Severity Reaction Status Date / Time No Known Drug Allergies Allergy Verified 06/18/24 14:03 Results Labs Labs: Laboratory Results - last 24 hr 06/18/24 13:37 WBC 19.11 H RBC 4.26 Hgb 12.5 Hct 38.9 MCV 91 MCH 29 MCHC 32 RDW Coeff of Myles 17.6 H Plt Count 179 Neut % (Auto) 78.9 H Lymph % (Auto) 13.8 L [place] % (Auto) 6.2 Eos % (Auto) 0.2 Baso % (Auto) 0.1 Neut # (Auto) 15.10 H Lymph # (Auto) 2.60 [place] # (Auto) 1.20 H Eos # (Auto) 0.00 Baso # (Auto) 0.00 Abs Immat Gran (auto) 0.20 Imm/Tot Granulo (auto) 0.8 Blood Type B Negative Antibody Screen POSITIVE Vital Signs Vital Signs: Last Vital Signs Pulse 100 10/10/24 14:48 BP 119/61 06/18/24 14:48 Pulse Ox 100 06/18/24 14:46 Weight: 76.294 kg Height: 154.94 cm Anesthesia Procedures Epidural Insertion Patient Location: OB Start Time: 14:00 Stop Time: 15:00 Start Date: 06/18/24 Stop Date: 06/18/24 Reason for Block: primary anesthetic Patient Position: sitting Performed By: Neto Muniz Preanesthetic Checklist: IV checked, risks and benefits discussed, surgical consent, monitors and equipment checked, pre-op evaluation, timeout performed and anesthesia consent Prep: chlorhexidine gluconate Monitoring: blood pressure monitoring, cardiac catheterization technician, continuous pulse oximetry and heart rate Approach: midline Vertebral Space: lumbar (1-5) Needle Type: Tuohy needle Injection Technique: continuous catheter Needle gauge: 17 Needle Length (cm): 10 cm Needle Insertion Depth (cm): 6 Catheter Gauge: 19 Catheter Type: multi-orifice Catheter at skin depth (cm): 12 Test Dose Result: negative and lidocaine 1.5% with epinephrine 1 to 200,000 Events: other
[2024-06-18] MEDS: ONDANSETRON 2 MG/ML inj 4 MG IV (15:26)
[2024-06-18] MEDS: PHENYLEPHRINE 100 MCG/ML SYRINGE IVP (15:39)
--- NOTE | 2024-06-18 16:06 | P.LDBA_ITS ---
Subjective History of Present Illness Time Seen by Provider: 16:00 Date Seen: 06/18/24 Narrative: Patient is being admitted to Labor and Delivery for spontaneous labor. She is a 34 year old at weeks gestation. Her full history and physical was dictated by Dr. Newsome on 05/29/24. Please see this for details. Patient was see in clinic today by Dr. Nj. Membrane was swept and she started having regular painful contractions a couple of hours later. Active movement. Denies LOF, vaginal bleeding or abnormal vaginal discharge. Specific Issues/Plans Partner: Aleksey Wagoner. Daughter: Sharda. Baby = Girl: Undecided on name #History of Ectopic s/p unilateral salpingectomy in June - 11/11 US confirms viable IUP #History of PPH secondary to atony - T/S and CBC on admission for delivery - TXA at delivery - Active management of 3rd stage of labor #Asymptomatic Subchorionic hemorrhage - Miscarriage and bleeding precautions provided #Rh negative rhogam: 03/27/24 #History of B12 anemia - normal Hgb w/ NOB labs @ 13.5mg/dL # Anemia, 9.4 on 03/27 s/p IV iron infusion - recheck Hgb at 34 weeks - 11.3 #HepB non-immune - Believes she has been immunized in childhood - Considering immunization, but is generally low risk. 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 Deferred at 16 week visit but can be rediscussed in the future. Covid:declines Flu:declines Rhogam: 03/27/24 Tdap: 04/10/24 32wk PHQ/JOESPH: 34wk Hgb: 11.3 (s/p IV iron) 36wk GBS: Negative H&P: Dr. Newsome on 05/29/24 OB - Problem Based A/P Additional Plan (1) : Status: Acute (2) Pain in symphysis pubis during : Problem details: Refer to physical therapy. Status: Acute (3) GERD (gastroesophageal reflux disease): Status: Acute (4) Rh negative status during : Status: Acute Plan - Augmentation with AROM - Will continue to monitor - Will start Pitocin PRN OB Exam Physical Exam Vital signs: Temp Pulse Resp BP Pulse Ox 98.3 F 111 H 18 109/70 98 06/18/24 16:00 06/18/24 15:59 06/18/24 15:07 06/18/24 15:59 06/18/24 15:51 Narrative: Physical exam: General: No acute distress Psych: Alert and oriented x3, full affect HEENT: Normocephalic, atraumatic Lungs: Unlabored breathing Neuro: No focal deficit. Mentating appropriately Abdomen: Gravid. Soft, nontender, nondistended in between contractions. Pelvic exam: 5.5/90/0, soft, anterior. Patient consented to AROM. AROM at 1555
[2024-06-18] MEDS: OXYTOCIN 30 unit/500 ML in NS 30 UNIT/500 ML BAG 300 UNIT IVPB (17:08)
[2024-06-18] MEDS: OXYTOCIN 10 UNIT/ML INJ IM (17:09)
[2024-06-18] MEDS: TRANEXAMIC ACID 100 MG/ML INJ 1000 MG IV (17:09)
[2024-06-18] MEDS: miSOPROStoL 800 MCG/4 TABLET PR (17:51)
--- NOTE | 2024-06-18 18:04 | W.PM.VAGDEL1 ---
Procedure Delivery date: 06/18/24 Procedure Done: Global Events: Labor Augmentation Intrapartal Events: Labor Augmentation Delivery augmentation: rupture of membranes Delivery monitor: external FHT Route of delivery: Narrative: Caryl is a 34 year-old admitted on 06/18/24 at 39 and 6/7 weeks gestation for spontaneous labor. GBS negative Labor Analgesia: Epidural Pitocin: Only during 3rd stage management AROM: June 18 at 1555, with clear fluid Labor onset: June 18 at 1309 Complete: June 18 at 1700 Pushing: June 18 at 1700 heart tones during second stage were category I. At 1708 a viable female delivered in vertex OA presentation over intact via spontaneous vaginal delivery. The 's body was delivered in the usual manner without difficulty. The infant was placed on maternal abdomen. The cord was clamped and cut after a 30-60 second delay. The nose and mouth were bulb suctioned. Infant weight: pending. 7 at 1 minute and 8 at 5 minutes. Shoulder dystocia: No. Nuchal cord: 1 Placenta delivered spontaneously and complete at 1712 with a 3-vessel cord. Placenta examined and noted to be complete. The cervix and vagina were inspected for lacerations, and 1st degree laceration was noted. Laceration(s): 1st degree, repaired with 2-0 chromic Complications: None Estimated blood loss: 400 cc from lower uterine segment atony Hemostatic medications: 40 units of Pitocin, 1 g of TXA, 800 mcg of misoprostol Sponge and needles counts are correct. Mother and were stable at the time of this note.
[2024-06-18] MEDS: ACETAMINOPHEN 500 MG TABLET 1000 MG PO (18:22)
[2024-06-18] MEDS: IBUPROFEN 600 MG TABLET PO (19:58)
[2024-06-19 00:26] VITALS: BP 108/57; PULSE 69; RESP 16; TEMP 37.1; O2SAT 97
[2024-06-19 04:39] VITALS: BP 103/67; PULSE 70; RESP 16; TEMP 36.8; O2SAT 98
[2024-06-19] MEDS: ACETAMINOPHEN 500 MG TABLET 1000 MG PO ×2 (04:44→11:18)
[2024-06-19 06:40] LABS: Hemoglobin* 11.5 gm/dL (12.0-16.0)
[2024-06-19 08:33] VITALS: BP 102/67; PULSE 70; RESP 20; TEMP 36.6; O2SAT 99
[2024-06-19] MEDS: DOCUSATE SODIUM 100 MG CAPSULE PO (08:50)
[2024-06-19] MEDS: IBUPROFEN 600 MG TABLET PO (08:50)
--- NOTE | 2024-06-19 09:16 | P.DS_ITS ---
DS: Providers Provider Date Seen: 06/19/24 Date of admission: 06/18/24 13:30 Primary care physician: Jeff Bautista MD Admitting Clinician: Nanda Newsome MD Attending Physician on discharge: Demarcus NORRIS Date of Discharge: 06/19/24 DS: Diagnosis Discharge Diagnosis (1) care and examination of lactating mother: Status: Acute (2) First degree laceration of perineum during delivery, : Status: Acute (3) (normal spontaneous vaginal delivery): Status: Acute (4) Hypertension affecting : Status: Acute Exam Narrative: Exam Narrative: GENERAL APPEARANCE:? normal affect, alert, no distress MOOD:? appropriate CHEST:? clear to auscultation HEART:? regular rate and rhythm ABDOMEN:? soft, non-tender the uterine fundus is 1 cm below Umbilicus, Midline and is appropriate for the stage of recovery. PERINEUM:? deferred. Nursing to check prior to discharge. EXTREMITIES:? normal and minimal edema : Const: Vital Signs, click to edit/add: Vital Signs - 24 hr 06/18/24 13:17 06/18/24 13:30 06/18/24 14:18 Temperature Pulse Rate 88 87 Pulse Rate [Pulse Oximeter] Respiratory Rate Blood Pressure 122/74 121/69 Blood Pressure [Ri ght Arm] Pulse [facility]xim[facility] 14:23 06/18/24 14:26 06/18/24 14:28 Temperature Pulse Rate 100 Pulse Rate [Pulse Oximeter] Respiratory Rate Blood Pressure 144/63 H Blood Pressure [Ri ght Arm] Pulse Oximetry 100 [facility] 06/[facility] 14:33 06/18/24 14:34 06/18/24 14:36 Temperature Pulse Rate 96 94 Pulse Rate [Pulse Oximeter] Respiratory Rate Blood Pressure 125/59 L 123/66 Blood Pressure [Ri ght Arm] Pulse Oximetry 100 Oxygen Delivery Me thod 06/18/24 14:38 06/18/24 14:40 06/18/24 14:41 Temperature Pulse Rate 105 H 123 H Pulse Rate [Pulse Oximeter] Respiratory Rate Blood Pressure 129/73 133/74 Blood Pressure [Ri ght Arm] Pulse Oximetry 100 Oxygen Delivery Mn thod 06/18/24 14:42 06/18/24 14:44 06/18/24 14:46 Temperature Pulse Rate 103 H 102 H 112 H Pulse Rate [Pulse Oximeter] Respiratory Rate Blood Pressure 132/72 135/67 124/60 Blood Pressure [Ri ght Arm] Pulse Oximetry 100 Oxygen Delivery Me thod 06/18/24 14:48 06/18/24 14:50 06/18/24 14:51 Temperature Pulse Rate 100 103 H Pulse Rate [Pulse Oximeter] Respiratory Rate Blood Pressure 119/61 129/66 Blood Pressure [Ri ght Arm] Pulse Oximetry 100 Oxygen Delivery Me thod 06/18/24 14:52 06/18/24 14:56 06/18/24 14:57 Temperature Pulse Rate 118 H 131 H Pulse Rate [Pulse Oximeter] Respiratory Rate Blood Pressure 123/64 140/68 H Blood Pressure [Ri ght Arm] Pulse Oximetry [facility] 14:59 06/18/24 15:05 06/18/24 15:06 Temperature Pulse Rate 136 H Pulse Rate [Pulse Oximeter] Respiratory Rate Blood Pressure 122/58 L Blood Pressure [Ri ght Arm] Pulse Oximetry 92 94 [facility] 15:07 06/18/24 15:08 06/18/24 15:10 Temperature 98.1 F Pulse Rate 125 H 123 H Pulse Rate [Pulse Oximeter] Respiratory Rate 18 Blood Pressure 101/65 111/54 L Blood Pressure [Ri ght Arm] Pulse Oximetry [facility] 15:11 06/18/24 15:16 06/18/24 15:22 Temperature Pulse Rate 77 Pulse Rate [Pulse Oximeter] Respiratory Rate Blood Pressure 165/122 H Blood Pressure [Ri ght Arm] Pulse Oximetry 93 [facility] 06[facility] 15:37 06/18/24 15:41 06/18/24 15:42 Temperature Pulse Rate 108 H 80 Pulse Rate [Pulse Oximeter] Respiratory Rate Blood Pressure 95/55 L 93/54 L Blood Pressure [Ri ght Arm] Pulse Oximetry 97 Oxygen Delivery Me thod 06/18/24 15:46 06/18/24 15:46 06/18/24 15:47 Temperature Pulse Rate 95 Pulse Rate [Pulse Oximeter] Respiratory Rate Blood Pressure 106/59 L Blood Pressure [Ri ght Arm] Pulse Oximetry 93 93 Oxygen Delivery Me od 06/18/24 15:51 06/18/24 15:59 06/18/24 16:00 Temperature 98.3 F Pulse Rate 111 H Pulse Rate [Pulse Oximeter] Respiratory Rate Blood Pressure 109/70 Blood Pressure [Ri ght Arm] Pulse Oximetry 98 Oxygen Delivery Me thod 06/18/24 16:06 06/18/24 16:08 06/18/24 16:17 Temperature Pulse Rate 103 H 113 H 104 H Pulse Rate [Pulse Oximeter] Respiratory Rate Blood Pressure 109/70 113/72 119/64 Blood Pressure [Ri ght Arm] Pulse Oximetry Oxygen Delivery Me thod 06/18/24 16:27 06/18/24 16:36 06/18/24 16:47 Temperature Pulse Rate 98 113 H 108 H Pulse Rate [Pulse Oximeter] Respiratory Rate Blood Pressure 118/74 119/77 122/74 Blood Pressure [Ri ght Arm] Pulse Oximetry Oxygen Delivery Me thod 06/18/24 16:56 06/18/24 17:07 06/18/24 17:16 Temperature Pulse Rate 122 H 144 H 121 H Pulse Rate [Pulse Oximeter] Respiratory Rate Blood Pressure 132/81 160/69 H 150/63 H Blood Pressure [Ri ght Arm] Pulse Oximetry Oxygen Delivery Mn thod 06/18/24 17:24 06/18/24 17:26 06/18/24 17:30 Temperature Pulse Rate 117 H 130 H 130 H Pulse Rate [Pulse Oximeter] Respiratory Rate Blood Pressure 148/65 H 138/64 115/58 L Blood Pressure [Ri ght Arm] Pulse Oximetry Oxygen Delivery Mn thod 06/18/24 17:44 06/18/24 17:50 06/18/24 18:00 Temperature Pulse Rate 134 H 117 H 108 H Pulse Rate [Pulse Oximeter] Respiratory Rate Blood Pressure 122/69 157/75 H 144/62 H Blood Pressure [Ri ght Arm] Pulse Oximetry Oxygen Delivery Mn thod 06/18/24 18:14 06/18/24 18:36 06/18/24 18:44 Temperature Pulse Rate 106 H 113 H 106 H Pulse Rate [Pulse Oximeter] Respiratory Rate Blood Pressure 130/60 132/59 L 125/60 Blood Pressure [Ri ght Arm] Pulse Oximetry Oxygen Delivery Mn thod 06/18/24 18:59 06/18/24 19:49 06/19/24 00:26 Temperature 99.1 F 98.7 F Pulse Rate 100 Pulse Rate [Pulse Oximeter] 91 69 Respiratory Rate 16 16 Blood Pressure 117/51 L Blood Pressure [Ri ght Arm] 109/64 108/57 L Pulse Oximetry 96 97 Oxygen Delivery Me thod Room Air Room Air 06/19/24 04:39 06/19/24 08:33 Temperature 98.2 F 97.8 F Pulse Rate Pulse Rate [Pulse Oximeter] 70 70 Respiratory Rate 16 20 Blood Pressure Blood Pressure [Ri ght Arm] 103/67 102/67 Pulse Oximetry 98 99 Oxygen Delivery Me thod Room Air Room Air OB - DS: Summary Hospital Course Hospital Course: The patient is a 34 year old G 4 P 2021 at 39 6/7 weeks gestation that was admitted to the Center on 06/18/24 for spontaneous labor. She had an uncomplicated vaginal delivery. She delivered a viable female infant. She is breast feeding. the patient has done well. The patient feels well.? T he pain is well controlled with current medications.? She has no new complaints.? the patient has done well.? Vitals have been stable.? She has remained afebrile.? Has a good appetite, is tolerating a general diet.? She is voiding without difficulty.? She is passing gas and has not had a bowel movement.? She is ambulating and denies any dizziness.? Has scantamount of rubra lochia. She is unsure about what she wants to use for prevention.?She feels certain they are done having children, but her does not want a vasectomy. Discharge home with baby.? Normotensive currently. GHTN per diagnosis guidelines in labor and PP. Follow up in 2 weeks and 6 weeks.? , may see if needed? Hgb 11.5. ? GHTN diagnosed by elevated BP greater than 4 hours apart? Labs WNL or stable with trending? Discharge home with BP cuff if does not already have one? Follow up in 3-5 days? Call for signs/symptoms of preeclampsia? Peripartum Data Infant delivery method: Vaginal Laceration description: Periurethral - 1st Degree Episiotomy description: None complications: none [place] Gender: Female Discharge Plan: Home Status at Discharge Overall status at discharge: patient is progressing back to baseline Time Spent with Patient Time attestation: Total time spent providing and/or coordinating discharge services: Time spent: Less than 30 minutes Discharge Plan Discharge Disposition: Home, Self-Care Date of Admission: 06/18/24 13:30 Attending Provider on Discharge: Evi Fernandez Primary Care Provider: Jeff Bautista Condition: Stable Anticipated Discharge Date/Time: 06/19/24 20:00 Discharge Medications: Continued acetaminophen 500 mg capsule 1,000 mg PO Q6H PRN DHA 200 mg capsule 200 mg PO DAILY Discontinued famotidine 20 mg tablet 20 mg PO QDAY Discharge Orders: Discharge Order (Routine); Ordered 06/19/24 Ordered By: Evi Fernandez Patient Education: OB [place] Care, OB Vaginal/Breast Feeding Additional Instructions: Discharge instructions were reviewed with the patient including signs and symptoms of infection and home going medications Nothing vaginally for 6 weeks: no tampons or intercourse Do not drive while taking narcotic pain medication(s) Off Work or School for 8 weeks Symptoms to report to doctor: * Bleeding that saturates more than one pad per hour * Passing clots larger than the size of a golf ball * Pain not relieved by prescribed medication * Fever above 100.4 degrees Fahrenheit * A foul vaginal odor * Difficulty in emotions, mood, and functions * Thoughts of hurting yourself and/or * Painful, reddened area in your breast * Any drainage, redness, or tenderness in your IV/epidural site * Severe headache that doesn't improve after taking medications * Changes in vision, including temporary loss of vision, blurred vision, and/or light sensitivity * Upper abdominal pain (usually under ribs on the right side) * Decrease in urination or painful, frequent urinating * Chest pain * Shortness of breath * Tenderness or pain with redness and/swelling in the calf(s) of your leg [facility] for a BP check 06/22/2024 or 06/23/2024 Call with BP greater than or equal to 160/110 Optional 2-week visit: discuss infant feeding concerns, review control options and screen for anxiety/depression. 6-week visit for an annual exam. consultation services are available to all mothers and babies for the first year after delivery.? To make an appointment, please call [phone]. For pain control of perineum, breast and pelvic pain, take 600 mg Ibuprofen every 6 hours as needed by mouth or 1000 mg acetaminophen (Tylenol) every 6 hours by mouth as needed. You can alternate these so you are taking something every 3 hours as needed. A heating pad can also be used for your abdomen or breasts.? Activity Level: Activity as Tolerated Discharge Diet: Regular Follow Up Appointments[facility] Group[facility] Info Instructions
--- NOTE | 2024-06-19 09:59 | PM.ANPOST ---
Post Anesthesia Note Post Anesthesia Note Patient seen: Inpatient Respiratory Status: adequate Cardiovascular Status: adequate Mental Status: baseline Pain: adequate Temp: baseline Anesthetic awareness: no Complications: none Follow care: none
[2024-06-19 12:13] VITALS: BP 105/66; PULSE 81; RESP 18; TEMP 36.9; O2SAT 97
[2024-06-19 16:23] VITALS: BP 118/73; PULSE 93; RESP 20; TEMP 37.1; O2SAT 97
[2024-06-21 04:06] LABS: Rapid Plasma Reagin (RPR) Non Reactive (Non Reactive)
== END 2024-06-19 19:27 | disposition home or self-care (01) | DRG 560 ==
LOC: OB OUT 13:30 → OB 13:30
PROVIDERS: Admitting Provider Obstetrics & Gynecology; PCP Family Medicine; Visit Provider Obstetrics & Gynecology
DX: O26.72 Subluxation of symphysis (pubis) in childbirth (principal); O13.4 Gestational [pregnancy-induced] hypertension without significant proteinuria, complicating childbirth; O70.0 First degree perineal laceration during delivery; O26.893 Other specified pregnancy related conditions, third trimester; Z67.21 Type B blood, Rh negative; Z87.59 Personal history of other complications of pregnancy, childbirth and the puerperium; K21.9 Gastro-esophageal reflux disease without esophagitis; O99.02 Anemia complicating childbirth; D51.9 Vitamin B12 deficiency anemia, unspecified; Z3A.39 39 weeks gestation of pregnancy; Z37.0 Single live birth
CPT/HCPCS: 01967; 36415; 85018; 85025; 86592; 86850; 86870; 86880; 86900; 86901; A9270; J2371; J2405; J2590; J2795; J3010; J7120

== ENCOUNTER 2024-06-24 14:25 | Outpatient (CLI) | payer BC, SELFPAY ==
--- OUTSIDE RECORDS SUMMARY | 2024-06-24 14:27 | XMS_ITS | Clinical Summary ---
Author Organization [employer] [address] [facility] Address [place], [place] [address] Care Team Providers Care Mine Administrator Supervisor Name Role Phone Hitesh Burnham MD Primary [...] DT Respiratory Rate 16 11/06/2016 12:07 PM [facility] Oxygen Saturation 99% 10/01/2016 1:46 PM [facility] Inhaled Oxygen Concentration - - Weight 57.3 [...] booster 07/09/2019 07/09/2009 (Comp leted outside of [email or web address]), 06/09/2009, 04/07/2002 Pap test for age 21-65 03/17/2024 , 03/17/2021, 09/30/2017, Additional history exists COVID-19 vaccine series (2023- season) 2024 Influenza for age 9-49 05/10/2024 6, 06/23/2015 (Completed outside of [email or web address]) Tdap Completed 06/09/2009 Pneumococcal series for age 6-64 Aged Out No longer eligible based on patient's age to complete this topic Procedures Procedure Name Priority Date/Time Associated Diagnosis Comments [facility] THIN PREP PAP SCREEN IMAGED Routine 03/17/2021 12:00 PM CDT from Last 3 Months or Most Recently Relevant to Health Maintenance Results * [facility] THIN PREP PAP SCREEN IMAGED (03/17/2021 12:00 PM CDT) Case Report Gynecologic Cytology Report ? Case: [id number] ? Authorizing Provider: ??Jessica Guthrie PA-C ?Collected: ? 03/17/2021 1200 ? Ordering Location: ? [facility] ?Received: ?03/20/2021 1004 ? First Screen: ?Lynda Blackman ? Specimen: ?[facility] ThinPrep Vial Screening, Cervical/Vaginal ? 03/29/2021 9:20 AM CDT [facility]- ENTRAL [facility]AT[facility] INTERPRETATION/ RESULT NEGATIVE FOR INTRAEPITHELIAL LESION OR MALIGNANCY (NIL) (none) 03/29/2021 9:20 AM T [facility] IMEN ADEQUACY Satisfactory for evaluation Endocervical component present 03/29/2021 9:20 AM CDT [facility] ENTRAL LABORATORY HPV REQUEST HPV and PAP 03/29/2021 9:20 AM CDT [facility] EN[facility]AL [facility] Last Pap Date 09/30/2017 03/29/2021 9:20 AM CDT [facility] ENTRAL LAB[facility] Last Pap Result NIL 9:20 AM CDT [facility] EN[facility]AL [facility]ATORY Menstrual Status 03/29/2021 9:20 AM CDT [facility] Additional Information 03/29/2021 9:20 AM T [facility] ENTRAL LABORATORY Comment: Interpreted at [facility] Central Laboratory - [address], [place] [address] Automated Review Successful 03/29/2021 9:20 AM T [facility] Comment:Specimen processed s uccessfully by automated mock up assembler device, [employer], [employer] ANCILLARY TESTING [facility] HPV Ordered, Please see separate report 03/29/2021 9:20 AM T [facility] ENTRAL LABORATORY Note The pap test [...] and malignant lesions. 03/29/2021 9:20 AM T [facility] Other (Cervical/Vagina l) 03/17/2021 12:00 PM CDT 03/20/2021 10:04 AM CDT [place] [facility] [address] [place] [address], [place] from Last 3 Months or Most Recently Relevant to Health Maintenance Care Teams Mine Administrator Supervisor Relationship Specialty Start Date End Date Hitesh Burnham MD [address] [facility] [address] [place] [address] PCP - General Family Practice 08/22/15
--- NOTE | 2024-06-24 16:04 | W.PM.LAC.MC ---
Consult Note - Mom Date of Visit Date of visit: 06/24/24 Reason for consultation: Breast/Nipple Issue Visit Code: Visit Patient's Information Phone number: [phone] : 2 Para: 2 Allergies No Known Drug Allergies Allergy (Verified 06/18/24 14:03) Mother's Medical History: Medical History (Updated 06/19/24 @ 09:31 by Evi Fernandez CNM) Otitis media ?H66.90 - Otitis media, unspecified, unspecified ear (ICD-10) Anemia, B12 deficiency ?D51.9 - Vitamin B12 deficiency anemia, unspecified (ICD-10) Ectopic ?O00.90 - Unspecified ectopic without intrauterine (ICD-10) Miscarriage ?O03.9 - Complete or unspecified spontaneous without complication (ICD-10) with uncertain viability ?O36.80X0 - with inconclusive viability, not applicable or unspecified (ICD-10) Rh negative status during ?O26.899 - Other specified related conditions, unspecified trimester (ICD-10) ?Z67.91 - Unspecified blood type, rh negative (ICD-10) Spotting in early ?O26.859 - Spotting complicating , unspecified trimester (ICD-10) Neuropathy ?G62.9 - Polyneuropathy, unspecified (ICD-10) Vaginal delivery ?O80 - Encounter for full-term uncomplicated delivery (ICD-10) hemorrhage ?O72.1 - Other immediate hemorrhage (ICD-10) Delivery Information Delivery type: Vaginal Gestational Age: 39+6 Gestational Weight For Age: AGA Weight: 3.78 kg Discharge Weight: 3.552 kg Percentage weight loss: 6 Baby's Information Baby's Age at Visit: 6 days Baby's Provider or Clinic: [facility] in [place] Jaundice: Yes (face only) Past Experience Past Experience: Yes (but not for very long) Current Frequency of Day Feedings: every 2.5-3 hours Both Breasts: Yes Suck: strong Latch: shallow and mom has \pain Length of Time: 10-15 min ea side Pumping Pumping: No Supplementing EBM Supplement: No Formula Supplement: No Baby Elimination Number of Wet Diapers a Day: 5-6 a day Number of BM a Day: none since 06/20, said ok, last stool was still dark vs yellow/seedy Breast/Nipple Condition Breast Information: Breasts are symmetrical with rounded lower quadrants, intramammary distance is less than 1.5 inches. No erythema. Nipples are supple, everted prior to feeding. Breast Shape: Round Engorgement: No Maternal Nipple Condition - Left: Common Nipple and Cracking/ Fissures Maternal Nipple Condition - Right: Common Nipple and Cracking/ Fissures Sore Nipples: Yes Interventions for Sore Nipples: Lansinoh/Nipple Cream (Nipple Butter by [employer]) Baby Assessment Skin: Yellow (face only) Tongue/frenulum: Normal/elastic Palate: Average Lips: Relaxed and Symmetrical Jaw Alignment: Symmetrical Mucosa: [place], moist Onsite Observation Pre-Feed weight: 3.464 kg Post-Feed weight: 3.494 kg Milk Transferred (mL): 30 Position: Cross cradle and Football Attachment/latch-on achieved: Easily Suck pattern: Suck burst and normal rest Swallow: Audible, consistent Behavior following feed: Alert, content Pre-Nursing Left Nipple: Crusting/Scabs Pre-Nursing Right Nipple: Crusting/Scabs Post-Nursing Left Nipple: Crusting/Scabs Post-Nursing Right Nipple: Crusting/Scabs Assessments/Interventions Assessments/Interventions: Mom with sore cracked nipples from poor latch Education provided: Early feeding cues to maximize timing of latching, Asymmetric latch technique for wide/deep latch to increase milk, Supply/demand nature of milk supply, Need for frequent stimulation/milk removal and Sore nipple treatment options (Soothies discussed) Feeding Plan: Worked with mom/taught asymmetrical latch technique for a wide, deep latch and mom reports increased comfort with this. Reviewed in both football and cross cradle hold; mom able to demonstrate Discussed normals of ; milk coming in, need to feed frequently Discussed switch nursing (5-10 min on 1st side, then 5-10 min on 2nd side, and repeat) to increase volume to baby Ibuprofen for mom ok to help decrease breast discomfort as needed. Nipple care reviewed as well. Discussed role of soothies and nipple cream for comfort Varied nursing positions may help nipples heal more quickly. Follow-Up Suggested follow up: Appointment as needed Recommend baby be seen by provider for:: Recommend weight check in 1-2 days for baby given no stool output in 4 days, and still at 7.6% weight loss from and less than discharge weight; mom said current plan was to return to clinic for 2 month well checkup since had gained 1.5 oz from 06/22 to 06/24 at clinic. Discussed can do f/u here for feeding assessment with it, or at Peds clinic. Mom will decide and schedule an appointment Time Spent Time spent with patient (min): 70 (Reviewing EMR and face to face with mom and baby) Meds Home Medications and Allergies Home Medications ?Medication ?Instructions ?Recorded ?Confirmed ?Type acetaminophen 500 mg capsule 1,000 mg PO Q6H PRN 11/12/23 06/18/24 History docosahexaenoic acid 200 mg 200 mg PO DAILY 11/12/23 06/18/24 History capsule ( DHA) Allergies Allergy/AdvReac Type Severity Reaction Status Date / Time No Known Drug Allergies Allergy Verified 06/18/24 14:03
== END 2024-06-24 14:26 | disposition home or self-care (01) ==
LOC: OB LAC 14:26
PROVIDERS: PCP Family Medicine; Visit Provider Obstetrics & Gynecology
DX: Z39.1 Encounter for care and examination of lactating mother (principal)
CPT/HCPCS: G0463